=== PATIENT | male | born 1945 | race American Indian/Alaskan Native ===

== ENCOUNTER 2019-01-30 16:14 | Emergency (ER) | payer MEDICARE, OTHER ==
[2019-01-30] MEDS ORDERED: SODIUM CHLORIDE 0.9% 1000 ML 1,000 ML IV ONE (17:32)
--- NOTE | 2019-01-30 17:33 | Emergency Department Report ---
ED General Adult HPI - General Chief complaint: Urogenital-Male Stated complaint: HEMATURIA Time Seen by Provider: 01/30/19 17:29 Source: EMS Mode of arrival: Stretcher Limitations: Altered Mental Status - History of Present Illness Initial comments: Patient is a 73-year-old male who comes to us from [facility] with hematuria. Patient comes via EMS and no information is been provided to the provider. I have asked the nurse to get chart information from [facility] which we have received. His medications include Hurley and Bactrim that appears to have been finished on 01/28/2019. He also note appears that the patient has been on 2 recent courses of Bactrim. Patient has a history of dementia. He is unresponsive to verbal stimuli. He is debilitated and frail appearing. Vital signs are stable and he is afebrile. PMH dementia tremor htn urinary retention with suprapubic catheter dysphagia rx bactrim x 2 courses- finished 01/28 [place] no NOK listed on SNF paperwork 1800 I've called RN in [facility]. She states pt was sent here so "he dont bleed to ." The SISTER is next of kin -: Gradual, days(s) Location: genitals Improves with: none Worsens with: none Associated Symptoms: denies other symptoms - Related Data Previous Rx's Medication Instructions Recorded Last Taken Type Sulfamethoxazole/Trimethoprim 1 each PO BID #10 tablet 01/30/19 Unknown Rx [Bactrim DS TAB] Allergies Allergy/AdvReac Type Severity Reaction Status Date / Time No Known Allergies Allergy Unverified 01/30/19 17:45 ED Review of Systems ROS: Stated complaint: HEMATURIA Other details as noted in HPI Comment: Unobtainable due to pts medical conditions ED Past Medical Hx - Past Medical History Hx Hypertension: Yes Hx Dementia: Yes Additional medical history: Pk dementia; essential tremor; vasc dementia; uinary retention; MD; hydroneph; dysphagia - Social History Substance Use Type: None - Medications Home Medications: Home Medications Medication Instructions Recorded Confirmed Last Taken Type Sulfamethoxazole/Trimethoprim 1 each PO BID #10 tablet 01/30/19 Unknown Rx [Bactrim DS TAB] ED Physical Exam - General Limitations: Altered Mental Status, Other (severe baseline dementia) General appearance: other (debilitated) - Head Head exam: Present: atraumatic, normocephalic - Eye Eye exam: Present: normal appearance - ENT ENT exam: Present: mucous membranes dry - Neck Neck exam: Present: normal inspection - Respiratory Respiratory exam: Present: normal lung sounds bilaterally. Absent: respiratory distress - Cardiovascular Cardiovascular Exam: Present: regular rate, normal rhythm, other (HR 90 on exam; RR 20). Absent: systolic murmur, diastolic murmur, rubs, gallop - GI/Abdominal GI/Abdominal exam: Present: soft, normal bowel sounds - Rectal Rectal exam: Present: deferred - Neurological Exam Neurological exam: Present: other (severe end stage dementia; cachectic and fr ail) - Skin Skin exam: Present: warm, dry, normal color. Absent: rash ED Course - Reevaluation(s) Reevaluation #1: 01/30/19 18:08 VIJAY PERERA [id number] I've updated sister on hematuria/no sepsis and need to follow up with urology MD. She states he has a urologist Reevaluation #2: 01/30/19 18:32 RN updated on plan of care Staffed with Dr Perez ED Medical Decision Making - Lab Data Result diagrams: 01/30/19 17:42 01/30/19 17:42 - Medical Decision Making labs noted WBC normal hgb normal IVF/toradol/rocephin ua and cultures sent hematuria on exam - from suprapubic cath per sister pt sees urology MD pt will dc back to [facility] on bactrim and follow up with urology. the SNF has been informed of the fact that urine cultures are pending and that the pt will need to see urology. Lab Results 01/30/19 01/30/19 Range/Units 17:42 17:42 WBC 10.5 (4.5-11.0) K/mm3 RBC 4.13 (3.65-5.03) M/mm3 Hgb 12.5 (11.8-15.2) gm/dl Hct 36.7 (35.5-45.6) % MCV 89 (84-94) fl MCH 30 (28-32) pg MCHC 34 (32-34) % RDW 14.1 (13.2-15.2) % Plt Count 176 (140-440) K/mm3 Seg Neutrophils % Product Specialist Sodium 142 (137-145) mmol/L Potassium 4.4 (3.6-5.0) mmol/L Chloride 106.1 (98-107) mmol/L Carbon Dioxide 22 (22-30) mmol/L Anion Gap 18 mmol/L BUN 34 H (9-20) mg/dL Creatinine 1.3 (0.8-1.5) mg/dL Estimated GFR 54 ml/min BUN/Creatinine Ratio 26 % Glucose 119 H (75-100) mg/dL Calcium 9.2 (8.4-10.2) mg/dL Total Bilirubin 0.50 (0.1-1.2) mg/dL AST 19 (5-40) units/L ALT 8 (7-56) units/L Alkaline Phosphatase 68 (35-129) units/L Total Protein 7.5 (6.3-8.2) g/dL Albumin 3.7 L (3.9-5) g/dL Albumin/Globulin Ratio 1.0 % - Differential Diagnosis ro uti/sepsis Critical care attestation.: If time is entered above; I have spent that time in minutes in the direct care of this critically ill patient, excluding procedure time. ED Disposition Clinical Impression: Hematuria, Debilitated patient, DNR (do not resuscitate) Disposition: DC-01 TO HOME OR SELFCARE Is pt being admited?: No Does the pt Need Aspirin: No Condition: Stable Instructions: Acute Hematuria (ED) Additional Instructions: KEEP PT HYDRATED TYLENOL OR MOTRIN FOR PAIN BACTRIM ORDERED WE SENT URINE CULTURES TONIGHT HAVE YOUR MD FOLLOW UP ON RESULTS PT NEEDS TO SEE HIS UROLOGIST JULIAN I'VE UPDATED SISTER- SHE IS AWARE OF ER VISIT AND WANTS PT SEEN BY UROLOGY Prescriptions: Sulfamethoxazole/Trimethoprim [Bactrim DS TAB] 1 each PO BID #10 tablet Referrals: MAURICIO ISSA MD [Staff Physician] - 3-5 Days Time of Disposition: 18:21
[2019-01-30 18:05] LABS: Hematocrit 36.7 % (35.5-45.6); Hemoglobin 12.5 gm/dl (11.8-15.2); Mean Corpuscular HGB Conc 34 % (32-34); Mean Corpuscular Volume 89 fl (84-94); Platelet Count 176 K/mm3 (140-440); Red Blood Count 4.13 M/mm3 (3.65-5.03); Red Cell Distribution Width 14.1 % (13.2-15.2)
[2019-01-30 18:13] LABS: Albumin 3.7 g/dL (3.9-5); Calcium 9.2 mg/dL (8.4-10.2)
[2019-01-30] MEDS ORDERED: KETOROLAC 30 MG/1 ML INJ IV ONE (18:21)
[2019-01-30 18:48] LABS: Basophils % (Manual) 0 % (0.0-1.8); Total Cells Counted 100
[2019-01-30 18:49] LABS: Anisocytosis Few; Ovalocytes Few; Platelet Estimate Consistent w Auto
[2019-01-30 19:14] VITALS: BP 114/86
== END 2019-01-30 21:30 | disposition home or self-care (01) ==
LOC: ED 16:14
DX: R31.9 Hematuria, unspecified (principal); F03.90 Unspecified dementia, unspecified severity, without behavioral disturbance, psychotic disturbance, mood disturbance, and anxiety; I10 Essential (primary) hypertension; Z66 Do not resuscitate; Z79.899 Other long term (current) drug therapy
CPT/HCPCS: 36415; 80053; 85007; 85025; 96365; 96366; 96375; 99283; J0696; J1885; J7030